=== PATIENT | female | born 1965 | race Two or more races ===

== ENCOUNTER 2017-11-09 10:39 | Emergency (ER) | payer OTHER ==
[~2017-11-09] VITALS: Ht 175.3 cm; Wt 88.0 kg
[~2017-11-09 10:39] MED LIST: ADVIL100 MG PO; SENOKOT TAB1 TAB PO
[2017-11-09] MEDS ORDERED: SYNTHROID112 MCG PO (10:58)
== END 2017-11-09 14:44 | disposition home or self-care (01) ==
LOC: ER 10:39
DX: R07.89 Other chest pain (principal); R51 Headache; F06.4 Anxiety disorder due to known physiological condition

== ENCOUNTER 2019-10-29 10:45 | Outpatient (CLI) | payer OTHER ==
[~2019-10-29 10:45] MED LIST changes: +SYNTHROID112 MCG PO
== END 2019-10-29 10:59 | disposition home or self-care (01) ==
LOC: NUCLEAR 10:45
PROVIDERS: ATTEND Physical Medicine & Rehabilitation
DX: I87.2 Venous insufficiency (chronic) (peripheral) (principal)

== ENCOUNTER 2020-02-28 14:23 | Emergency (ER) | payer OTHER ==
[~2020-02-28] VITALS: Ht 175.3 cm; Wt 88.9 kg
[2020-02-28] MEDS ORDERED: MOTION RELIEF25 MG PO (17:43)
[2020-02-28] MEDS ORDERED: ZOFRAN8 MG PO (17:50)
== END 2020-02-28 18:00 | disposition home or self-care (01) ==
LOC: ER 14:23
DX: R42 Dizziness and giddiness (principal)

== ENCOUNTER 2020-05-02 10:00 | Outpatient (CLI) | payer OTHER ==
[~2020-05-02 10:00] MED LIST changes: +MOTION RELIEF25 MG PO; +ZOFRAN8 MG PO
== END 2020-05-02 10:34 | disposition home or self-care (01) ==
LOC: SONOGRAMA 10:00
PROVIDERS: ATTEND Surgery
DX: D24.1 Benign neoplasm of right breast (principal); N60.11 Diffuse cystic mastopathy of right breast; N60.12 Diffuse cystic mastopathy of left breast

== ENCOUNTER 2020-06-02 13:08 | Inpatient (IN) | payer OTHER ==
[~2020-06-02] VITALS: Ht 175.3 cm; Wt 87.1 kg
[~2020-06-02 13:08] MED LIST changes: +PROBIOTIC1 EAC2 PO
--- NOTE | 2020-06-02 13:35 | NUR ---
PACIENTE ALERTA Y ORIENTADA EN LAS BOY ESFERAS. PACIENTE FUE ATENDIDA EN LA VIKTOR DE EMERGENCIAS EL SABADO POR FOOD POISONING. PACIENTE REFIERE ESTAR PRESENTANDO SANGRADO RECTAL CONNER BRILLANTE EN LAS EVACUACIONES. PACIENTE REFIERE QUE LOZANO TENIDO MAS DE 5 EVACUACIONES CON ELVIRA DESDE EL TAE DE SARIKA. PACIENTE REFIERE TAMBIEN SENTIRSE DEBIL Y TENER MAREOS. SE UBICA A PACIENTE EN AREA DE OBSERVACION.
--- NOTE | 2020-06-02 15:40 | NUR ---
RN DAYDAY ORIENTA A PACIENTE SOBRE TRATAMIENTO ORDENADO POR DR. MULLINS, LA MISMA VERBLIZA ENTENDER. RN COLECTA MUESTRAS ORDENADAS, ADMINISTRA MEDICAMENTOS, COLOCA VENOPUNCION PATENTE, CAESAR DE ERITEMA Y EDEMA Y CONECTA TERAPIA DE IVF'S. PTE EN ESPERA DE RESULTADOS PARA RE-EVALUACION MEDICA.
== END 2020-06-12 19:20 | disposition home or self-care (01) | DRG 387 ==
LOC: ER 13:08 → MEDI 22:28
PROVIDERS: ADMIT Internal Medicine; ATTEND Internal Medicine
PROC: 0DBM8ZX Excision of Descending Colon, Via Natural or Artificial Opening Endoscopic, Diagnostic (ICD-10-PCS; principal; 2020-06-02)
DX: K50.111 Crohn's disease of large intestine with rectal bleeding (principal); K52.89 Other specified noninfective gastroenteritis and colitis; E03.8 Other specified hypothyroidism; R07.89 Other chest pain

== ENCOUNTER 2021-02-24 00:56 | Emergency (ER) | payer OTHER ==
[~2021-02-24] VITALS: Ht 175.3 cm; Wt 85.7 kg
[2021-02-24] MEDS ORDERED: CECLOR250 MG/5 M (01:26)
[2021-02-24] MEDS ORDERED: CANNABIS (01:26)
[2021-02-24] MEDS ORDERED: BUTALB-ASPIRIN1 EACH PO (07:35)
== END 2021-02-24 08:17 | disposition home or self-care (01) ==
LOC: ER 00:56
DX: G43.909 Migraine, unspecified, not intractable, without status migrainosus (principal); F41.8 Other specified anxiety disorders

== ENCOUNTER 2021-05-14 09:31 | Outpatient (CLI) | payer OTHER ==
[~2021-05-14 09:31] MED LIST changes: +BUTALB-ASPIRIN1 EACH PO; +CANNABIS; +CECLOR250 MG/5 M
== END 2021-05-14 09:32 | disposition home or self-care (01) ==
LOC: LAB 09:31
PROVIDERS: ATTEND Radiology Diagnostic Radiology
DX: K55.039 Acute (reversible) ischemia of large intestine, extent unspecified (principal)

== ENCOUNTER 2021-05-14 11:30 | Outpatient (CLI) | payer OTHER | END 2021-05-14 11:41 | disposition home or self-care (01) | LOC: TOM 11:30 | PROVIDERS: ATTEND Internal Medicine | DX: K59.03 Drug induced constipation (principal); K55.8 Other vascular disorders of intestine ==

== ENCOUNTER 2022-03-15 14:01 | Outpatient (CLI) | payer OTHER | END 2022-03-15 14:02 | disposition home or self-care (01) | LOC: NUCLEAR 14:01 | PROVIDERS: ATTEND Internal Medicine Endocrinology, Diabetes & Metabolism | DX: E78.2 Mixed hyperlipidemia (principal); M81.0 Age-related osteoporosis without current pathological fracture; E66.2 Morbid (severe) obesity with alveolar hypoventilation; E04.9 Nontoxic goiter, unspecified; E04.1 Nontoxic single thyroid nodule ==

== ENCOUNTER 2022-06-09 14:43 | Emergency (ER) | payer OTHER ==
[~2022-06-09] VITALS: Ht 172.7 cm; Wt 83.5 kg
[2022-06-09] MEDS ORDERED: PANTOPRAZOLE SO40 MG PO (16:02)
== END 2022-06-09 18:59 | disposition home or self-care (01) ==
LOC: ER 14:43
DX: R07.89 Other chest pain (principal); R51.9 Headache, unspecified

== ENCOUNTER 2023-12-09 06:18 | Day surgery (SDC) | payer OTHER ==
[2023-12-07 09:23] LABS: HEMATOCRIT 38.4 % (36.0-45.00); MEAN CORPUSCULAR HEMOGLOBIN 29.8 pg (27.00-32.0); MEAN CORPUSCULAR HGB CONC 33.9 g/dl (32.0-36.0); PLATELET COUNT 201 K/uL (150-450); RED BLOOD COUNT 4.37 M/uL (4.00-6.00)
[2023-12-07 09:38] LABS: INR 1.05; PARTIAL THROMBOPLASTIN TIME 29.3 SECONDS (22.0-34.0); PROTHROMBIN TIME 11.4 SECONDS (9.0-11.5)
[2023-12-07 09:47] LABS: URINE APPEARANCE Clear; URINE BILIRRUBIN Negative (NEGATIVE); URINE BLOOD Negative; URINE COLOR Yellow; URINE GLUCOSE Negative (NEGATIVE); URINE KETONE Negative (NEGATIVE); URINE LEUKOCYTE Trace; URINE NITRATE Negative; URINE PROTEIN Negative (NEGATIVE); URINE UROBILINOGEN 0.2 E.U./dl
[2023-12-07 09:48] LABS: URINE BACTERIA 11.3 uL (0.0-1933); URINE EPITHELIAL CELLS 1.8 uL (0.0-38.8); URINE RBC 2.1 uL (0.0-20.8); URINE WBC 2.7 uL (0.0-23.2)
[2023-12-07 10:07] LABS: ALBUMIN 3.9 gm/dL (3.4-5.0); BILIRUBIN TOTAL 0.46 mg/dL (0.3-1.2); CALCIUM 9.8 mg/dL (8.5-10.1); CREATININE SERUM 0.67 mg/dL (0.55-1.02); GFR 90.09; GLOBULINA 3.4 G/DL (2.4-3.5); POTASSIUM 4.33 mEq/L (3.5-5.1); TOTAL PROTEIN 7.3 gm/dL (6.4-8.2)
[~2023-12-09 06:18] MED LIST changes: +PANTOPRAZOLE SO40 MG PO
[2023-12-09] MEDS ORDERED: MORPHINE SULFATE 4 MG/ML VIAL IV ONE ×3 (14:30→15:30)
== END 2023-12-09 16:45 | disposition home or self-care (01) ==
LOC: CIR.AMB 06:18
PROVIDERS: ATTEND Surgery
DX: C50.411 Malignant neoplasm of upper-outer quadrant of right female breast (principal); N62 Hypertrophy of breast; D24.2 Benign neoplasm of left breast; R92.0 Mammographic microcalcification found on diagnostic imaging of breast; N65.1 Disproportion of reconstructed breast
CPT/HCPCS: 19301; 38525; 19318; A9541

== ENCOUNTER 2024-11-05 15:27 | Inpatient (IN) | payer OTHER ==
[~2024-11-05] VITALS: Ht 152.4 cm; Wt 86.2 kg
[2024-11-05] MEDS ORDERED: CARAFATE1 GM PO ×2 (15:44→15:51)
[2024-11-05] MEDS ORDERED: PEPCID AC20 MG PO (15:44)
[2024-11-05] MEDS ORDERED: AROMASIN25 MG PO (15:44)
--- NOTE | 2024-11-05 15:47 | NUR ---
SE RECIBE PACIENTE ALERTA Y ORIENTADA X3 LA CUAL REFIERE VENIR A CAUSA DE DOLOR ABDOMINAL JOSE. LA MISMA REFIERE QUE PATTERSON INTERNISTA DR. DIXON IZQUIERDO LE DIJO QUE PASARA POR VIKTOR DE EMERGENCIAS PARA EVALUACION.
[2024-11-05] MEDS ORDERED: LEVO-T112 MCG PO (15:50)
[2024-11-05] MEDS ORDERED: PROTONIX40 MG PO (15:50)
[2024-11-05] MEDS ORDERED: MORPHINE SULFATE 4 MG/ML VIAL IV ONE (16:45)
[2024-11-05] MEDS ORDERED: FAMOtidine 10 MG/ML (4ML VIAL) IV ONE (16:45)
[2024-11-05] MEDS ORDERED: 0.9 % SODIUM CHLORIDE 1,000 ML IV ONE (16:45)
[2024-11-05] MEDS ORDERED: PIPERACILLIN/TAZOBACTAM SODIUM 3.375 GM VIAL IV ONE (16:45)
--- NOTE | 2024-11-05 16:54 | NUR ---
SE ORIENTA PTE POR MS REICH SOBRE TX MEDICO EL CUAL REFIERE ENTENDER.SE LE EXTRAEN MUESTRAS BAJO MEDIDAS ASEPTICAS,SE CANALIZA Y SE ADMINISTRAN MEDICAMENTOS.SE NOTIFICAN ESTUDIOS Y SE ORIENTA PTE SOBRE DIETA NPO.
[2024-11-05 17:33] LABS: BASO % 0.8 % (0.1-1.2); EOS # 0.07 (0.04-0.54); EOS % 0.9 % (0.7-7.0); LYMPH # 2.57 (1.18-3.74); LYMPH % 33.4 % (19.3-53.1); MEAN PLATELET VOLUME 10.00 fl (9.4-12.4); MONO # 0.59 (0.24-0.82); MONO % 7.7 % (4.7-12.5); NEUT # 4.38 (1.56-6.13); NEUT % 56.8 % (34.0-71.1); RED CELL DISTRIBUTION WIDTH 13.2 % (11.6-14.4)
[2024-11-05 18:14] LABS: ALT/SGPT 21.0 U/L (12-78); AST/SGOT 22.0 U/L (15-37); BILIRUBIN TOTAL 0.3 mg/dL (0.3-1.2); BUN CREA RATIO 19.0 (7.0-25.0); CREATININE SERUM 0.7 mg/dL (0.55-1.02); GFR 85.35; GLOBULINA 3.5 G/DL (2.4-3.5); GLUCOSE FASTING 91.0 mg/dL (65-100); OSMOLALITY SERUM 285.0 MOSM/KG (275-295)
[2024-11-05 18:30] LABS: INR 1.05
--- NOTE | 2024-11-05 19:26 | NUR ---
PENDIENTE A CT YA NOTIFICADO.
[2024-11-05 21:01] LABS: URINE APPEARANCE Clear; URINE BILIRRUBIN Negative (NEGATIVE); URINE BLOOD Negative; URINE COLOR Yellow; URINE GLUCOSE Negative (NEGATIVE); URINE KETONE Negative (NEGATIVE); URINE LEUKOCYTE Negative; URINE NITRATE Negative; URINE PROTEIN Negative (NEGATIVE); URINE UROBILINOGEN 0.2 E.U./dl
[2024-11-05 21:06] LABS: URINE BACTERIA 11.9 uL (0.0-1933)
[2024-11-05 21:11] LABS: URINE CAST 0.00 uL (0.0-1.40); URINE EPITHELIAL CELLS 0.6 uL (0.0-38.8); URINE RBC 1.0 uL (0.0-20.8); URINE WBC 0.3 uL (0.0-23.2)
[2024-11-05] MEDS ORDERED: DIPHENHYDRAMINE HCL 50 MG/ML VIAL 1ML IV STA (21:11)
[2024-11-05] MEDS ORDERED: METHYLPREDNISOLONE SOD SUCC 125 MG VIAL IV STA (21:11)
[2024-11-05] MEDS ORDERED: FAMOTIDINE/PF 20 MG in 0.9 % SODIUM CHLORIDE 8 ML IV PUSH SCH (22:21)
[2024-11-05] MEDS ORDERED: 0.9 % SODIUM CHLORIDE 1,000 ML IV SCH (22:30)
[2024-11-05] MEDS ORDERED: MORPHINE SULFATE 4 MG/ML CARTRIDGE IV PRN (22:30)
[2024-11-05] MEDS ORDERED: MORPHINE SULFATE 2 MG/ML CARTRIDGE IV ONE (22:30)
[2024-11-05] MEDS ORDERED: PROMETHAZINE HCL 25 MG/ML AMPUL IM ONE (22:30)
[2024-11-05] MEDS ORDERED: ACETAMINOPHEN 500 MG GEL..CAP PO PRN (22:30)
[2024-11-05] MEDS ORDERED: ONDANSETRON HCL 4 MG in 0.9 % SODIUM CHLORIDE 50 ML IV PRN (22:30)
[2024-11-06] MEDS ORDERED: MORPHINE SULFATE 2 MG/ML CARTRIDGE IV SCH (02:00)
[2024-11-06] MEDS ORDERED: LEVOTHYROXINE SODIUM 112 MCG TABLET PO SCH (06:00)
[2024-11-06] MEDS ORDERED: CIPROFLOXACIN IN 5 % DEXTROSE 200 ML IV SCH (09:00)
[2024-11-06 09:21] VITALS: BP 93/60
[2024-11-06 14:46] LABS: BASO % 0.2 % (0.1-1.2); EOS # 0.00 (0.04-0.54); EOS % 0.0 % (0.7-7.0); LYMPH # 1.59 (1.18-3.74); LYMPH % 12.8 % (19.3-53.1); MEAN PLATELET VOLUME 10.10 fl (9.4-12.4); MONO # 0.70 (0.24-0.82); MONO % 5.6 % (4.7-12.5); NEUT # 10.04 (1.56-6.13); NEUT % 81.1 % (34.0-71.1); RED CELL DISTRIBUTION WIDTH 13.2 % (11.6-14.4)
[2024-11-06 15:32] LABS: ALT/SGPT 21.0 U/L (12-78); AST/SGOT 21.0 U/L (15-37); BILIRUBIN TOTAL 0.41 mg/dL (0.3-1.2); BUN CREA RATIO 18.0 (7.0-25.0); CREATININE SERUM 0.65 mg/dL (0.55-1.02); GFR 92.97; GLOBULINA 3.4 G/DL (2.4-3.5); GLUCOSE FASTING 103.0 mg/dL (65-100); OSMOLALITY SERUM 289.0 MOSM/KG (275-295)
[2024-11-06 16:30] VITALS: BP 111/68; O2SAT 99
[2024-11-07 02:25] VITALS: BP 90/55; O2SAT 98
[2024-11-07 06:12] LABS: BASO % 0.6 % (0.1-1.2); EOS # 0.05 (0.04-0.54); EOS % 0.6 % (0.7-7.0); LYMPH # 2.59 (1.18-3.74); LYMPH % 28.9 % (19.3-53.1); MEAN PLATELET VOLUME 10.60 fl (9.4-12.4); MONO # 0.69 (0.24-0.82); MONO % 7.7 % (4.7-12.5); NEUT # 5.57 (1.56-6.13); NEUT % 62.0 % (34.0-71.1); RED CELL DISTRIBUTION WIDTH 13.5 % (11.6-14.4)
[2024-11-07 07:05] LABS: ALT/SGPT 16 U/L (12-78); AST/SGOT 15 U/L (15-37); BILIRUBIN TOTAL 0.37 mg/dL (0.3-1.2); BUN CREA RATIO 23 (7.0-25.0); CREATININE SERUM 0.57 mg/dL (0.55-1.02); GFR 108.19; GLOBULINA 2.6 G/DL (2.4-3.5); GLUCOSE FASTING 89 mg/dL (65-100); OSMOLALITY SERUM 290 MOSM/KG (275-295)
[2024-11-07 08:32] VITALS: BP 102/52
[2024-11-07 08:34] VITALS: BP 105/68
[2024-11-07] MEDS ORDERED: SODIUM CHLORIDE 0.45 % 1,000 ML IV SCH (13:15)
[2024-11-07 18:17] VITALS: BP 117/73; O2SAT 98
[2024-11-07] MEDS ORDERED: Cyanocobalamin/Mecobalamin 1 TAB.SL SL SCH (19:56)
[2024-11-07] MEDS ORDERED: SOD FERRIC GLUC COMPLX/SUCROSE 125 MG in 0.9 % SODIUM CHLORIDE 100 ML IV SCH (19:56)
[2024-11-07] MEDS ORDERED: Cyanocobalamin/Mecobalamin 1 TAB.SL SL ONE (20:12)
[2024-11-07] MEDS ORDERED: SOD FERRIC GLUC COMPLX/SUCROSE 62.5 MG/5 ML AMPUL IV ONE (20:13)
[2024-11-07] MEDS ORDERED: MAGNESIUM HYDROXIDE 30 ML BLIST.PACK PO ONE ×2 (20:55→21:00)
[2024-11-07] MEDS ORDERED: LACTULOSE 20 G/30 ML BLIST.PACK ONE (20:55)
[2024-11-07] MEDS ORDERED: MINERAL OIL 30 ML BLIST.PACK ONE (20:55)
[2024-11-07] MEDS ORDERED: LACTULOSE 20 G/30 ML BLIST.PACK PO ONE (21:00)
[2024-11-07] MEDS ORDERED: MINERAL OIL 30 ML BLIST.PACK PO ONE (21:00)
[2024-11-07] MEDS ORDERED: MORPHINE SULFATE 2 MG/ML CARTRIDGE IV PRN (23:45)
[2024-11-08 01:04] VITALS: BP 111/70; O2SAT 98
[2024-11-08] MEDS ORDERED: MORPHINE SULFATE 2 MG/ML CARTRIDGE IV SCH (02:00)
[2024-11-08 08:57] VITALS: BP 113/72
[2024-11-08 18:16] VITALS: BP 142/86
[2024-11-08] MEDS ORDERED: BUPIVACAINE HCL/MPF 0.5% 30ML VIAL ONE (19:14)
[2024-11-08] MEDS ORDERED: MORPHINE SULFATE 4 MG/ML VIAL IV ONE (21:00)
[2024-11-08] MEDS ORDERED: KETOROLAC TROMETHAMINE 30 MG VIAL IV PRN (21:15)
[2024-11-08] MEDS ORDERED: ONDANSETRON HCL 2 MG/ML VIAL ONE (21:18)
[2024-11-09 02:49] VITALS: BP 101/63; O2SAT 95
[2024-11-09 08:49] VITALS: BP 111/71
[2024-11-09] MEDS ORDERED: SUCRALFATE 1 G TABLET PO SCH (09:00)
[2024-11-09 21:09] VITALS: BP 112/67
[2024-11-09 21:11] VITALS: BP 112/67
[2024-11-10 03:08] VITALS: BP 95/60; O2SAT 95
[2024-11-10 07:41] LABS: BASO % 0.3 % (0.1-1.2); EOS # 0.14 (0.04-0.54); EOS % 1.9 % (0.7-7.0); LYMPH # 1.52 (1.18-3.74); LYMPH % 21.1 % (19.3-53.1); MEAN PLATELET VOLUME 10.40 fl (9.4-12.4); MONO # 0.75 (0.24-0.82); MONO % 10.4 % (4.7-12.5); NEUT # 4.75 (1.56-6.13); NEUT % 66.0 % (34.0-71.1); RED CELL DISTRIBUTION WIDTH 13.3 % (11.6-14.4)
[2024-11-10 08:07] LABS: BUN CREA RATIO 14.0 (7.0-25.0); CREATININE SERUM 0.76 mg/dL (0.55-1.02); GFR 77.63; GLUCOSE FASTING 85.0 mg/dL (65-100); OSMOLALITY SERUM 284.0 MOSM/KG (275-295)
[2024-11-10 08:59] VITALS: BP 98/65; O2SAT 96
[2024-11-10 15:30] VITALS: BP 121/78; O2SAT 95
[2024-11-11 01:13] VITALS: BP 118/78; O2SAT 98
[2024-11-11 09:33] VITALS: BP 117/69; O2SAT 98
[2024-11-11 16:52] VITALS: BP 146/89; O2SAT 100
== END 2024-11-11 17:23 | disposition home or self-care (01) | DRG 419 ==
LOC: ER 16:07 → MEDI 11-06 00:10
PROVIDERS: General Practice; Internal Medicine; Internal Medicine Infectious Disease; Surgery; ADMIT Internal Medicine; ATTEND Internal Medicine
PROC: BW40ZZZ Ultrasonography of Abdomen (ICD-10-PCS; 2024-11-05)
PROC: BW21ZZZ Computerized Tomography (CT Scan) of Abdomen and Pelvis (ICD-10-PCS; 2024-11-05)
PROC: BB24ZZZ Computerized Tomography (CT Scan) of Bilateral Lungs (ICD-10-PCS; 2024-11-05)
PROC: CF1C1ZZ Planar Nuclear Medicine Imaging of Hepatobiliary System, All using Technetium 99m (Tc-99m) (ICD-10-PCS; 2024-11-05)
PROC: BF13YZZ Fluoroscopy of Gallbladder and Bile Ducts using Other Contrast (ICD-10-PCS; 2024-11-08)
PROC: 0FT44ZZ Resection of Gallbladder, Percutaneous Endoscopic Approach (ICD-10-PCS; principal; 2024-11-08 20:30)
DX: K80.00 Calculus of gallbladder with acute cholecystitis without obstruction (principal); R63.0 Anorexia; K29.00 Acute gastritis without bleeding; E03.8 Other specified hypothyroidism